=== PATIENT | male | born 1965 | race Caucasian/White ===

== ENCOUNTER 2022-06-28 08:03 | Day surgery (SDC) | payer BC ==
[~2022-06-28 08:03] MED LIST: Lactated Ringers 1,000 ML IV SCH
[2022-06-28] MEDS ORDERED: fentaNYL 100 MCG/2 ML SDV ONE (09:16)
[2022-06-28] MEDS ORDERED: Lidocaine 2% 5 ML SDV ONE (09:16)
[2022-06-28] MEDS ORDERED: Propofol 200 MG/20 ML SDV ONE (09:16)
[2022-06-28] MEDS ORDERED: Lactated Ringers 1,000 ML IV SCH (10:45)
== END 2022-06-28 11:25 | disposition home or self-care (01) ==
LOC: MW.SDS 08:03
PROVIDERS: ATTEND Surgery
DX: Z12.11 Encounter for screening for malignant neoplasm of colon (principal); K57.30 Diverticulosis of large intestine without perforation or abscess without bleeding; I10 Essential (primary) hypertension; E11.40 Type 2 diabetes mellitus with diabetic neuropathy, unspecified; F41.8 Other specified anxiety disorders; E78.5 Hyperlipidemia, unspecified; E66.9 Obesity, unspecified; F17.210 Nicotine dependence, cigarettes, uncomplicated; G35 Multiple sclerosis; Z88.5 Allergy status to narcotic agent; Z88.8 Allergy status to other drugs, medicaments and biological substances; Z79.02 Long term (current) use of antithrombotics/antiplatelets; Z79.82 Long term (current) use of aspirin; Z79.83 Long term (current) use of bisphosphonates; Z79.899 Other long term (current) drug therapy; Z79.84 Long term (current) use of oral hypoglycemic drugs; Z79.810 Long term (current) use of selective estrogen receptor modulators (SERMs); Z79.891 Long term (current) use of opiate analgesic; Z90.49 Acquired absence of other specified parts of digestive tract; Z80.0 Family history of malignant neoplasm of digestive organs; Z98.890 Other specified postprocedural states; Z68.32 Body mass index [BMI] 32.0-32.9, adult
CPT/HCPCS: 45378; 82947; J2704; J3010; J7120; 00812